=== PATIENT | male | born 1960 | race Caucasian/White ===

== ENCOUNTER 2019-02-17 12:45 | Observation (INO) ==
[2019-02-17] MEDS ORDERED: ZALEPLON 5 MG CAPSULE PO PRN (12:55)
[2019-02-17] MEDS ORDERED: ONDANSETRON 4 MG/2 ML VIAL IV PRN (12:55)
[2019-02-17] MEDS ORDERED: DOCUSATE SODIUM 100 MG CAPSULE PO PRN (12:55)
[2019-02-17] MEDS ORDERED: hydrALAZINE 20 MG/1 ML VIAL IV PRN (13:11)
[2019-02-17 14:45] LABS: Basophils % 0.4 % (0.0-0.8); Eosinophils # 0.2 10*3/uL (0.0-0.87); Eosinophils % 3.1 % (0.00-10.9); Hematocrit 27.4 VOL% (42.0-52.0); Hemoglobin 9.5 GM/DL (14.0-18.0); Immature Granulocytes % 0.2 %; Immature Granulocytes Absolute 0.01 #; Lymphocytes # 0.9 10*3/uL (1.4-4.0); Lymphocytes % 18.8 % (21.2-54.2); Mean Corpuscular HGB Conc 34.7 GM/DL (32-36); Mean Corpuscular Volume 90.7 FL (87-102); Mean Platelet Volume 9.1 FL (9.6-12.0); Neutrophils % 68.5 % (38.7-73.9); Platelet Count 148 T/CUMM (130-400); Red Blood Count 3.02 MC/CUMM (3.8-5.5); Red Cell Distribution Width 18.4 % (9.3-17.3); White Blood Count 4.9 T/CUMM (4-12)
[2019-02-17 15:08] LABS: Albumin 3.9 G/DL (3.4-5.0); Calcium 9.8 MG/DL (8.5-10.1); Osmolality,Calculated 298.3 MOS/KG (273-304); Total Protein 7.2 G/DL (6.4-8.3)
[2019-02-17] MEDS: ENOXAPARIN 30 MG/0.3 ML SYRINGE SUBCUT SCH (15:51)
[2019-02-17] MEDS: PANTOPRAZOLE 40 MG TABLET PO SCH (15:52)
[2019-02-17] MEDS: SODIUM CHLORIDE 0.9% 1,000 ML IV SCH ×2 (15:52→22:11)
[2019-02-17] MEDS ORDERED: INSULIN LISPRO 100 UNIT/ML SUBCUT SCH (16:30)
[2019-02-17 17:09] LABS: Apearance,Urine CLEAR (Clear); Bacteria,Urine Occasional /HPF (Few); Bilirubin,Urine Negative (Negative); Blood, Urine Negative (Negative); Glucose,Urine (UA) Negative (Negative); Ketones,Urine Negative (Negative); Mucus,Urine Occasional /LPF (Occasional); Nitrite,Urine Negative (Negative); Protein,Urine Negative; RBC,Urine <1 /HPF (0-4); Urine Color Yellow (Yellow); Urine Specific Gravity 1.009 (1.001-1.035); Urine Urobilinogen < 2.0 EU/DL (0.2-1.0); WBC,Urine 1 /HPF (0-6)
[2019-02-17] MEDS: INSULIN LISPRO 100 UNIT/ML SUBCUT SCH ×2 (18:12→21:04)
[2019-02-17 19:04] LABS: Microalbum Ur Quant Random 21.6 MG/L (0-20); Microalbum/Creat Ratio Random 33.8 RATIO (0-30)
[2019-02-17] MEDS ORDERED: INSULIN NPH 100 UNIT/ML SUBCUT SCH (21:00)
[2019-02-17] MEDS ORDERED: TAMSULOSIN 0.4 MG CAPSULE PO SCH (21:00)
[2019-02-17] MEDS: TERAZOSIN 2 MG CAPSULE PO SCH (21:07)
[2019-02-17] MEDS: ASCORBIC ACID 500 MG TABLET PO SCH (21:08)
[2019-02-17] MEDS: OMEGA 3 ACID ETHYL ESTERS 1 GM CAPSULE PO SCH (21:08)
[2019-02-17] MEDS: TAMSULOSIN 0.4 MG CAPSULE PO SCH (21:08)
[2019-02-17] MEDS: OXYBUTYNIN XL 5 MG TABLET PO SCH (21:08)
[2019-02-18 05:05] LABS: Basophils % 0.5 % (0.0-0.8); Eosinophils # 0.2 10*3/uL (0.0-0.87); Eosinophils % 3.9 % (0.00-10.9); Hematocrit 26.6 VOL% (42.0-52.0); Immature Granulocytes % 0.2 %; Immature Granulocytes Absolute 0.01 #; Lymphocytes # 1.1 10*3/uL (1.4-4.0); Mean Corpuscular HGB Conc 33.8 GM/DL (32-36); Mean Corpuscular Volume 91.7 FL (87-102); Mean Platelet Volume 9.3 FL (9.6-12.0); Monocytes % 11.6 % (1.7-12.7); Neutrophils % 58.8 % (38.7-73.9); Platelet Count 134 T/CUMM (130-400); Red Cell Distribution Width 18.4 % (9.3-17.3); White Blood Count 4.3 T/CUMM (4-12)
[2019-02-18 05:24] LABS: Calcium 9.2 MG/DL (8.5-10.1); Osmolality,Calculated 300.6 MOS/KG (273-304)
[2019-02-18] MEDS ORDERED: GLUCOSE GEL 15 GM TUBE PO ONE (06:00)
[2019-02-18] MEDS ORDERED: GLUCAGON 1 MG VIAL IM PRN (06:02)
[2019-02-18] MEDS ORDERED: DEXTROSE 50% 25 GM/50 ML VIAL IV PRN ×2 (06:02→10:03)
[2019-02-18] MEDS ORDERED: GLUCOSE GEL 15 GM TUBE PO PRN (06:15)
[2019-02-18] MEDS: INSULIN LISPRO 100 UNIT/ML SUBCUT SCH ×3 (06:34→21:22)
[2019-02-18] MEDS: SODIUM CHLORIDE 0.9% 1,000 ML IV SCH ×3 (06:45→21:26)
[2019-02-18] MEDS: LEVOTHYROXINE 100 MCG TABLET PO SCH (06:47)
[2019-02-18] MEDS ORDERED: INSULIN NPH 100 UNIT/ML SUBCUT SCH (07:30)
[2019-02-18] MEDS: FINASTERIDE 5 MG TABLET PO SCH (11:19)
[2019-02-18] MEDS: amLODIPine 10 MG TABLET PO SCH (11:19)
[2019-02-18] MEDS: OMEGA 3 ACID ETHYL ESTERS 1 GM CAPSULE PO SCH ×2 (11:20→21:30)
[2019-02-18] MEDS: ASCORBIC ACID 500 MG TABLET PO SCH ×2 (11:20→21:29)
[2019-02-18] MEDS: BENZONATATE 100 MG CAPSULE PO PRN ×2 (11:20→21:25)
[2019-02-18] MEDS: ASPIRIN EC 81 MG TABLET PO SCH (11:21)
[2019-02-18] MEDS: GLUCOSAMINE 500 MG TABLET PO SCH (11:21)
[2019-02-18] MEDS: MULTIVITAMIN (CENTRUM) TABLET PO SCH (11:21)
[2019-02-18] MEDS: MAGNESIUM OXIDE 400 MG TABLET PO SCH (11:21)
[2019-02-18] MEDS: PANTOPRAZOLE 40 MG TABLET PO SCH (11:21)
[2019-02-18] MEDS: TAMSULOSIN 0.4 MG CAPSULE PO SCH ×2 (11:22→21:30)
[2019-02-18] MEDS: ALBUTEROL 0.63 MG/3 ML NEB RESP TX SCH ×3 (13:25→23:42)
[2019-02-18] MEDS: ENOXAPARIN 30 MG/0.3 ML SYRINGE SUBCUT SCH (13:39)
[2019-02-18] MEDS: INSULIN NPH 100 UNIT/ML SUBCUT SCH (21:21)
[2019-02-18] MEDS: OXYBUTYNIN XL 5 MG TABLET PO SCH (21:21)
[2019-02-18] MEDS: TERAZOSIN 2 MG CAPSULE PO SCH (21:29)
[2019-02-19] MEDS: BENZONATATE 100 MG CAPSULE PO PRN ×3 (01:20→22:00)
[2019-02-19 03:25] LABS: Basophils % 0.4 % (0.0-0.8); Eosinophils # 0.1 10*3/uL (0.0-0.87); Hematocrit 25.4 VOL% (42.0-52.0); Hemoglobin 8.5 GM/DL (14.0-18.0); Immature Granulocytes % 0.4 %; Immature Granulocytes Absolute 0.02 #; Lymphocytes % 22.1 % (21.2-54.2); Mean Corpuscular HGB Conc 33.5 GM/DL (32-36); Mean Platelet Volume 9.1 FL (9.6-12.0); Neutrophils % 65.1 % (38.7-73.9); Platelet Count 134 T/CUMM (130-400); Red Blood Count 2.79 MC/CUMM (3.8-5.5); Red Cell Distribution Width 17.8 % (9.3-17.3); White Blood Count 4.7 T/CUMM (4-12)
[2019-02-19 03:43] LABS: Osmolality,Calculated 297.8 MOS/KG (273-304)
[2019-02-19] MEDS: ALBUTEROL 0.63 MG/3 ML NEB RESP TX SCH ×3 (07:09→23:01)
[2019-02-19] MEDS: LEVOTHYROXINE 100 MCG TABLET PO SCH (07:18)
[2019-02-19] MEDS: INSULIN LISPRO 100 UNIT/ML SUBCUT SCH ×3 (07:20→21:59)
[2019-02-19] MEDS: INSULIN NPH 100 UNIT/ML SUBCUT SCH ×2 (08:41→21:59)
[2019-02-19] MEDS: ASPIRIN EC 81 MG TABLET PO SCH (08:42)
[2019-02-19] MEDS: PANTOPRAZOLE 40 MG TABLET PO SCH (08:42)
[2019-02-19] MEDS: ASCORBIC ACID 500 MG TABLET PO SCH ×2 (08:42→22:00)
[2019-02-19] MEDS: amLODIPine 10 MG TABLET PO SCH (08:42)
[2019-02-19] MEDS: GLUCOSAMINE 500 MG TABLET PO SCH (08:42)
[2019-02-19] MEDS: FINASTERIDE 5 MG TABLET PO SCH (08:43)
[2019-02-19] MEDS: TAMSULOSIN 0.4 MG CAPSULE PO SCH ×2 (08:43→21:59)
[2019-02-19] MEDS: MULTIVITAMIN (CENTRUM) TABLET PO SCH (08:43)
[2019-02-19] MEDS: MAGNESIUM OXIDE 400 MG TABLET PO SCH (08:43)
[2019-02-19] MEDS: OMEGA 3 ACID ETHYL ESTERS 1 GM CAPSULE PO SCH ×2 (08:43→22:00)
[2019-02-19] MEDS ORDERED: CITALOPRAM 20 MG TABLET PO SCH (09:00)
[2019-02-19] MEDS: ENOXAPARIN 30 MG/0.3 ML SYRINGE SUBCUT SCH (12:14)
[2019-02-19] MEDS: SODIUM CHLORIDE 0.9% 1,000 ML IV SCH (16:58)
[2019-02-19] MEDS: OXYBUTYNIN XL 5 MG TABLET PO SCH (21:59)
[2019-02-19] MEDS: TERAZOSIN 2 MG CAPSULE PO SCH (21:59)
[2019-02-20 05:06] LABS: % Iron Saturation 24.7 % (18-50); Ferritin 567.1 ng/ml (26-388)
[2019-02-20] MEDS: INSULIN LISPRO 100 UNIT/ML SUBCUT SCH (06:24)
[2019-02-20] MEDS: LEVOTHYROXINE 100 MCG TABLET PO SCH (06:27)
[2019-02-20] MEDS: ALBUTEROL 0.63 MG/3 ML NEB RESP TX SCH (08:00)
[2019-02-20] MEDS: INSULIN NPH 100 UNIT/ML SUBCUT SCH (08:39)
[2019-02-20 08:52] LABS: Basophils % 0.4 % (0.0-0.8); Eosinophils # 0.1 10*3/uL (0.0-0.87); Eosinophils % 1.2 % (0.00-10.9); Hematocrit 26.8 VOL% (42.0-52.0); Hemoglobin 9.2 GM/DL (14.0-18.0); Immature Granulocytes % 0.7 %; Immature Granulocytes Absolute 0.04 #; Lymphocytes # 0.8 10*3/uL (1.4-4.0); Lymphocytes % 13.8 % (21.2-54.2); Mean Corpuscular HGB Conc 34.3 GM/DL (32-36); Mean Corpuscular Volume 90.5 FL (87-102); Mean Platelet Volume 8.8 FL (9.6-12.0); Monocytes % 7.9 % (1.7-12.7); Platelet Count 120 T/CUMM (130-400); Red Blood Count 2.96 MC/CUMM (3.8-5.5); Red Cell Distribution Width 17.5 % (9.3-17.3); White Blood Count 5.7 T/CUMM (4-12)
[2019-02-20] MEDS: ASPIRIN EC 81 MG TABLET PO SCH (09:03)
[2019-02-20] MEDS: MAGNESIUM OXIDE 400 MG TABLET PO SCH (09:03)
[2019-02-20] MEDS: MULTIVITAMIN (CENTRUM) TABLET PO SCH (09:03)
[2019-02-20] MEDS: GLUCOSAMINE 500 MG TABLET PO SCH (09:03)
[2019-02-20] MEDS: OMEGA 3 ACID ETHYL ESTERS 1 GM CAPSULE PO SCH (09:03)
[2019-02-20] MEDS: amLODIPine 10 MG TABLET PO SCH (09:03)
[2019-02-20] MEDS: FINASTERIDE 5 MG TABLET PO SCH (09:03)
[2019-02-20] MEDS: TAMSULOSIN 0.4 MG CAPSULE PO SCH (09:04)
[2019-02-20] MEDS: ASCORBIC ACID 500 MG TABLET PO SCH (09:04)
[2019-02-20] MEDS: PANTOPRAZOLE 40 MG TABLET PO SCH (09:04)
[2019-02-20] MEDS: BENZONATATE 100 MG CAPSULE PO PRN (09:08)
[2019-02-20 09:15] LABS: Calcium 8.9 MG/DL (8.5-10.1); Osmolality,Calculated 295.4 MOS/KG (273-304)
[2019-02-20 09:48] LABS: Folate 17.7 NG/ML (5.4-24.0)
[2019-02-20 12:08] VITALS: BP 135/68
[2019-02-20] MEDS: ENOXAPARIN 30 MG/0.3 ML SYRINGE SUBCUT SCH (14:30)
== END 2019-02-20 15:12 | disposition home or self-care (01) ==
LOC: N.TELEN
PROVIDERS: ADMIT Internal Medicine Cardiovascular Disease; ATTEND Internal Medicine Cardiovascular Disease